=== PATIENT | male | born 1930 | race Caucasian/White ===

== ENCOUNTER 2018-12-31 17:13 | Emergency (ER) | payer MEDICARE, OTHER ==
[~2018-12-31] VITALS: Ht 167.6 cm; Wt 65.0 kg
[2018-12-31 17:19] VITALS: Ht 167.6 cm; Wt 65.0 kg
--- NOTE | 2018-12-31 20:17 | ERD ---
ER Documentation Chief Complaint Chief Complaint Sent from for evaluation HPI 88-year-old man referred here by PMD for possible hyperkalemia, blood was drawn 2 days ago. His physician also suspected urinary retention and bladder distention due to a mass in the lower abdomen. Patient has had no fevers or chills, no dysuria or hematuria, no complaints of chest pain or shortness of breath ROS All systems reviewed and are negative except as per history of present illness. Medications Home Meds Active Scripts Cephalexin* (Keflex*) 500 Mg Capsule, 500 MG PO QID for 5 Days, CAP Prov:JOSE D BECK MD 12/31/18 Allergies Allergies: Coded Allergies: No Known Allergy (Unverified , 10/16/15) PMhx/Soc Coronary artery disease status post triple coronary artery bypass graft, atrial fibrillation, artificial heart valve, hypertension, no longer anticoagulated due to falls History of Surgery: Yes FmHx Family History: No diabetes Physical Exam Vitals Vital Signs Date Temp Pulse Resp B/P (MAP) Pulse Ox O2 O2 Flow FiO2 Time Delivery Rate 12/31/18 67 17 119/68 100 Room Air 21:33 (85) 12/31/18 98.4 59 20 99/57 (71) 99 17:19 Physical Exam GENERAL: Well-developed, well-nourished appears dehydrated, comfortable, afebrile HEENT: Dry mucous membranes, pink conjunctiva, no cervical spine tenderness or step-off deformities, no goiter, no jaundice or icterus NEURO: Alert and oriented 3, cranial nerves II through XII intact bilaterally, pupils equal round reactive to light, no focal deficits or facial asymmetry CARDIAC: Regular rate and rhythm, no murmurs rubs or gallops LUNGS: Clear bilaterally no wheezing crackles or stridor ABDOMEN: There is a firm lower abdominal distention, nontender, no guarding or rigidity, no rebound SKIN: Warm and dry to touch, no abrasions, contusions, or hematomas, no lacerations, no ecchymosis, no target lesions, and without ulcers EXTREMITIES: No clubbing cyanosis or edema, calves are bilaterally symmetrical, no Homans sign, no popliteal cord sign. Distal pulses equal and bilateral PSYCH: Normal affect without agitation or irritability Result Diagram: 12/31/18202012/31/182020 Results 24 hrs Laboratory Tests Test 12/31/18 20:21 White Blood Count 5.5 10^3/ul Red Blood Count 3.98 10^6/ul Hemoglobin 10.7 g/dl Hematocrit 32.7 % Mean Corpuscular Volume 82.2 fl Mean Corpuscular Hemoglobin 26.9 pg Mean Corpuscular Hemoglobin Concent 32.7 g/dl Red Cell Distribution Width 16.8 % Platelet Count 140 10^3/UL Mean Platelet Volume 12.4 fl Immature Granulocytes % 0.400 % Neutrophils % 66.7 % Lymphocytes % 21.0 % Monocytes % 6.4 % Eosinophils % 5.3 % Basophils % 0.2 % Nucleated Red Blood Cells % 0.0 /100WBC Immature Granulocytes # 0.020 10^3/ul Neutrophils # 3.7 10^3/ul Lymphocytes # 1.2 10^3/ul Monocytes # 0.4 10^3/ul Eosinophils # 0.3 10^3/ul Basophils # 0.0 10^3/ul Nucleated Red Blood Cells # 0.0 10^3/ul Prothrombin Time 13.5 Sec Prothrombin Time Ratio 1.1 INR International Normalized Ratio 1.02 Activated Partial Thromboplast Time 34.9 Sec Urine Color STRAW Urine Clarity CLEAR Urine pH 5.0 Urine Specific Viola 1.008 Urine Ketones NEGATIVE mg/dL Urine Nitrite NEGATIVE mg/dL Urine Bilirubin NEGATIVE mg/dL Urine Urobilinogen NEGATIVE mg/dL Urine Leukocyte Esterase NEGATIVE Edmar/ul Urine Hemoglobin NEGATIVE mg/dL Urine Glucose NEGATIVE mg/dL Urine Total Protein NEGATIVE mg/dl Sodium Level 139 mmol/L Potassium Level 4.7 mmol/L Chloride Level 106 mmol/L Carbon Dioxide Level 21 mmol/L Anion Gap 12 Blood Urea Nitrogen 99 mg/dl Creatinine 3.35 mg/dl Est Glomerular Filtrat Rate mL/min mL/min Glucose Level 98 mg/dl Calcium Level 9.8 mg/dl Total Bilirubin 0.5 mg/dl Direct Bilirubin 0.00 mg/dl Indirect Bilirubin 0.5 mg/dl Aspartate Amino Transf (AST/SGOT) 27 IU/L Alanine Aminotransferase (ALT/SGPT) 34 IU/L Alkaline Phosphatase 104 IU/L Troponin I 0.054 ng/ml Total Protein 7.7 g/dl Albumin 4.1 g/dl Globulin 3.60 g/dl Albumin/Globulin Ratio 1.13 Lipase 169 U/L Current Medications Medications Dose Sig/Beatriz Start Time Status Last (Trade) Ordered Route PRN Stop Time Admin Dose Reason Admin Sodium 500 ml @ Q1H STAT 12/31/18 DC 12/31/18 Chloride 500 mls/hr IV 20:26 12/31/18 20:40 21:25 Procedures/MDM IV line was established patient was placed on shelter monitor rhythm strip revealed a sinus rhythm at about 70 bpm with upright P and T waves. Patient was afebrile EKG performed, read by me revealed a atrial fibrillation rate controlled at 68 bpm, left axis deviation, right ventricular conduction delay QRS duration 108 ms, no concerning ST elevations or depressions noted I administered 500 cc normal saline IV Herrera catheter was passed. About 2000 mL clear urine output obtained, abdominal mass resolved completely and patient's repeat abdominal exam was benign without masses or tenderness to touch. 1 view chest x-ray performed, read by me revealed cardiomegaly and sternotomy wires, clips throughout the mediastinum, no acute infiltrates, no pneumothorax CBC was normal, coagulation profile normal, electrolytes normal revealed normal potassium although creatinine elevated to about 3.4, liver function tests normal, troponin negative, urinalysis negative for infection Patient did not want to be admitted so I replaced his Herrera catheter with a leg bag and recommended oral rehydration therapy at home and follow-up with PMD, he also has a urology appointment scheduled for next week. Differential diagnoses considered, included but not limited to acute coronary syndrome, pulmonary embolism, aortic dissection, abdominal aortic aneurysm, sepsis, stroke, meningitis, encephalitis, pneumonia, appendicitis, cholecystitis, bowel obstruction, pyelonephritis, nephrolithiasis, cystitis, as well as metabolic, hematologic, and electrolyte abnormalities. As well as abscess, cellulitis, fractures, and dislocations. Patient feels much better at this time, and vital signs are normal, symptoms have improved. I did give strict instructions to return to the ED if symptoms continue or worsen, patient will otherwise follow-up with primary care physician. Patient understood instructions and agreed to plan. Disclaimer: Inadvertent spelling and grammatical errors are likely due to EHR/dictation software use and do not reflect on the overall quality of patient care. Also, please note that the electronic time recorded on this note does not necessarily reflect the actual time of the patient encounter. Departure Diagnosis: Primary Impression: Acute urinary retention Condition: Good JOSE D BECK MD December 31, 2018 20:17
[2018-12-31] MEDS ORDERED: SOD CHLORIDE 0.9% 500 ML IV STA (20:26)
[2018-12-31] MEDS ORDERED: CEPH-443 PO (21:19)
[2018-12-31 21:33] VITALS: BP 119/68; PULSE 67; RESP 17
== END 2018-12-31 21:46 | disposition home or self-care (01) ==
LOC: E/R 17:13
DX: R33.9 Retention of urine, unspecified (principal); I25.10 Atherosclerotic heart disease of native coronary artery without angina pectoris; I10 Essential (primary) hypertension; R10.9 Unspecified abdominal pain
CPT/HCPCS: 36415; 51702; 71045; 80053; 81003; 83690; 84484; 85025; 85610; 85730; 87086; 93005; 99285; J7040